=== PATIENT | female | born 1990 | race African-American/Black ===

== ENCOUNTER 2023-11-14 18:21 | Emergency (ER) | payer BC | END 2023-11-14 19:02 | disposition left against medical advice (07) | LOC: SED 18:21 | DX: O20.9 Hemorrhage in early pregnancy, unspecified (principal); O26.891 Other specified pregnancy related conditions, first trimester; Z3A.01 Less than 8 weeks gestation of pregnancy; Z53.21 Procedure and treatment not carried out due to patient leaving prior to being seen by health care provider ==